=== PATIENT | female | born 1995 | race Caucasian/White ===

== ENCOUNTER 2021-01-03 09:10 | Inpatient (IN) | payer BC, OTHER ==
[~2021-01-03] VITALS: Ht 160 cm; Wt 65.0 kg
[2021-01-03] MEDS: LACTATED RINGERS 1,000 ML IV SCH ×2 (11:38→19:49)
[2021-01-03] MEDS ORDERED: TERBUTALINE 1 MG/ML, 1ML SQ PRN (12:00)
[2021-01-03] MEDS ORDERED: OXYTOCIN 30U/ 0.9% NaCL 500ML 500 ML IV ONE (12:00)
[2021-01-03] MEDS ORDERED: TERBUTALINE 1 MG/ML, 1ML IVPush PRN (12:00)
[2021-01-03] MEDS ORDERED: FENTANYL PF 100 MCG/2ML IV PRN (12:00)
[2021-01-03] MEDS ORDERED: NEWBORN KIT ONE (12:09)
[2021-01-03] MEDS ORDERED: LIDOCAINE 1%, 20ML ONE (12:09)
[2021-01-03] MEDS ORDERED: MISOPROSTOL 200 MCG TABLET ONE (12:09)
[2021-01-03] MEDS: AMPICILLIN 2 GM in SODIUM CHLORIDE 0.9% 100 ML IV SCH ×2 (12:14→18:26)
[2021-01-03 12:20] LABS: BASOPHILS % (AUTO) 0 % (0-1); EOSINOPHILS % (AUTO) 1 % (1-7); LYMPHOCYTES % (AUTO) 16 % (22-44); MEAN CORPUSCULAR HEMOGLOBIN 27.6 pg (27.0-34.8); MEAN CORPUSCULAR HGB CONC 32.9 g/dL (32.4-35.8); MEAN PLATELET VOLUME 8.9 fL (7.4-10.4); MONOCYTES % (AUTO) 6 % (2-9); NEUTROPHILS % (AUTO) 77 % (42-75); PLATELET COUNT 296 x10^3/uL (130-400); RED BLOOD COUNT 4.31 x10^6/uL (3.82-5.3); RED CELL DISTRIBUTION WIDTH 15.5 % (9.6-15.2)
[2021-01-03 12:32] LABS: MD NO
[2021-01-03] MEDS ORDERED: OXYTOCIN 30U/ 0.9% NaCL 500ML 500 ML IV PRN (15:30)
[2021-01-03] MEDS: FENTANYL PF 100 MCG/2ML IVPush PRN ×2 (19:04→20:11)
[2021-01-03] MEDS ORDERED: ONDANSETRON 2MG/ML, 2ML ONE (20:12)
[2021-01-03] MEDS ORDERED: ONDANSETRON 2MG/ML, 2ML IVPush PRN (20:30)
[2021-01-03] MEDS ORDERED: FENTANYL/BUPIV./NS/PF 250 ML EPIDCONT ONE (20:44)
[2021-01-03] MEDS ORDERED: BUPIVACAINE 0.25% ONE (20:44)
[2021-01-03] MEDS ORDERED: FENTANYL/BUPIV./NS/PF 250 ML EPIDCONT SCH (21:30)
[2021-01-03] MEDS ORDERED: LACTATED RINGERS 1,000 ML IVBOLUS PRN (21:30)
[2021-01-03] MEDS ORDERED: LACTATED RINGERS 1,000 ML IV SCH (21:30)
[2021-01-03] MEDS ORDERED: EPHEDRINE 50 MG/ML, 1ML IVPush PRN (21:30)
[2021-01-04] MEDS: AMPICILLIN 2 GM in SODIUM CHLORIDE 0.9% 100 ML IV SCH (00:22)
[2021-01-04] MEDS ORDERED: RHOGAM FROM BLOOD BANK 1 NOTE EA IM/IV ONE (04:30)
[2021-01-04] MEDS ORDERED: DOCUSATE 100 MG CAPSULE PO PRN (04:30)
[2021-01-04] MEDS ORDERED: OXYcodone/APAP 5/325MG TABLET PO PRN (04:30)
[2021-01-04] MEDS ORDERED: ONDANSETRON 2MG/ML, 2ML IV PRN (04:30)
[2021-01-04] MEDS ORDERED: BISACODYL 10 MG SUPP PR PRN (04:30)
[2021-01-04] MEDS ORDERED: IBUPROFEN 800 MG TABLET PO PRN (04:30)
[2021-01-04] MEDS ORDERED: HYDROcodone/APAP 5/325 TABLET PO PRN (04:30)
[2021-01-04] MEDS ORDERED: MISOPROSTOL 200 MCG TABLET PR PRN (04:30)
[2021-01-04] MEDS ORDERED: ACETAMINOPHEN 325 MG TABLET PO PRN (04:30)
[2021-01-04] MEDS ORDERED: IBUPROFEN 600 MG TABLET ONE (06:28)
[2021-01-04] MEDS: IBUPROFEN 600 MG TABLET PO PRN ×3 (11:56→23:42)
[2021-01-04 11:59] VITALS: BP 107/71
[2021-01-04 12:05] LABS: BASOPHILS % (AUTO) 1 % (0-1); EOSINOPHILS % (AUTO) 1 % (1-7); LYMPHOCYTES % (AUTO) 12 % (22-44); MEAN CORPUSCULAR HEMOGLOBIN 27.7 pg (27.0-34.8); MEAN CORPUSCULAR HGB CONC 33.4 g/dL (32.4-35.8); MEAN PLATELET VOLUME 8.8 fL (7.4-10.4); MONOCYTES % (AUTO) 7 % (2-9); NEUTROPHILS % (AUTO) 79 % (42-75); PLATELET COUNT 299 x10^3/uL (130-400); RED BLOOD COUNT 3.84 x10^6/uL (3.82-5.3); RED CELL DISTRIBUTION WIDTH 15.3 % (9.6-15.2)
[2021-01-04 12:07] LABS: MD NO
[2021-01-04 16:40] VITALS: BP 100/66
[2021-01-04 19:30] VITALS: BP 107/70
[2021-01-04] MEDS: OXYTOCIN 30U/ 0.9% NaCL 500ML 500 ML IV SCH (22:47)
[2021-01-04] MEDS: PRENATAL VIT/IRON/FA 1 EACH TABLET PO SCH (22:47)
[2021-01-04 23:41] VITALS: BP 106/72
[2021-01-05] MEDS: OXYTOCIN 30U/ 0.9% NaCL 500ML 500 ML IV SCH (00:30)
[2021-01-05 03:35] VITALS: BP 107/72
[2021-01-05] MEDS: IBUPROFEN 600 MG TABLET PO PRN (06:10)
[2021-01-05 07:40] VITALS: BP 106/73
[2021-01-05] MEDS: PRENATAL VIT/IRON/FA 1 EACH TABLET PO SCH (09:00)
[2021-01-05] MEDS ORDERED: IBUP-1222 PO (09:36)
[2021-01-05] MEDS ORDERED: DOCU-131 PO (09:36)
== END 2021-01-05 12:20 | disposition home or self-care (01) | DRG 807 ==
LOC: LDOP 09:10 → LDIP 11:01 → 2NW 01-04 07:47
PROVIDERS: ADMIT Obstetrics & Gynecology; ATTEND Obstetrics & Gynecology
PROC: 10E0XZZ Delivery of Products of Conception, External Approach (ICD-10-PCS; principal; 2021-01-04)
PROC: 0UQMXZZ Repair Vulva, External Approach (ICD-10-PCS; 2021-01-04)
PROC: 10907ZC Drainage of Amniotic Fluid, Therapeutic from Products of Conception, Via Natural or Artificial Opening (ICD-10-PCS; 2021-01-04)
PROC: 10H07YZ Insertion of Other Device into Products of Conception, Via Natural or Artificial Opening (ICD-10-PCS; 2021-01-04)
PROC: 3E0R3BZ Introduction of Anesthetic Agent into Spinal Canal, Percutaneous Approach (ICD-10-PCS; 2021-01-04)
PROC: 00HU33Z Insertion of Infusion Device into Spinal Canal, Percutaneous Approach (ICD-10-PCS; 2021-01-04)
DX: O71.82 Other specified trauma to perineum and vulva (principal); Z37.0 Single live birth; Z3A.38 38 weeks gestation of pregnancy; Z80.42 Family history of malignant neoplasm of prostate; Z87.440 Personal history of urinary (tract) infections; Z90.49 Acquired absence of other specified parts of digestive tract; Z20.822 Contact with and (suspected) exposure to COVID-19
CPT/HCPCS: 36415; 85025; 86592; 86850; 86900; 87635; G0378; J0290; J2405; J3010; J2590; J7120